=== PATIENT | female | born 1965 | race Caucasian/White ===

== ENCOUNTER 2023-05-13 13:05 | Emergency (ER) | payer BC, SELFPAY ==
[2023-05-13 13:11] VITALS: BP 133/88
[2023-05-13 13:37] LABS: % Basophils 0.7 % (0-2); % Eosinophils 7.5 % (0-6); % Immature Granulocytes 0.2 % (0-0.5); % Monocytes 6.7 % (1.7-9.3); % Neutrophils 40.9 % (42.2-75.2); Absolute Eosinophils 0.4 10^3/uL (0-0.7); Absolute Lymphocytes 2.4 10^3/uL (1.2-3.4); Absolute Monocytes 0.4 10^3/uL (0.1-0.6); Absolute Neutrophils 2.3 10^3/uL (1.4-6.5); Hematocrit 40.1 % (37.0-47.0); Hemoglobin 14.2 g/dL (12.0-16.0); Mean Corp Hgb Conc. 35.4 g/dL (33.0-37.0); Mean Corpuscular Hgb 32.4 pg (27.0-31.0); Mean Corpuscular Volume 91.6 fL (81.0-99.0); Mean Platelet Volume 9.4 fL (7.4-10.4); Nucleated Red Blood Cells % 0 %; Platelet Count 293 10^3/uL (130-400); Red Blood Cell Count 4.38 10^6/uL (4.20-5.40); Red Cell Dist. Width 12.1 % (11.5-14.5); White Blood Cell Count 5.5 10^3/uL (4.8-10.8)
[2023-05-13 13:47] LABS: Urine Albumin Negative (Neg - Trace); Urine Bilirubin Negative (Negative); Urine Character Clear (Clear); Urine Color Yellow; Urine Glucose Negative (Negative); Urine Ketone Negative (Negative); Urine Leukocyte Negative (Negative); Urine Nitrite Negative (Negative); Urine Occult Blood Negative (Negative); Urine Urobilinogen Negative (Neg - 1+); Urine pH 6.5 (5.0-9.0)
[2023-05-13 13:50] LABS: ALT (SGPT) 28 U/L (0-35); AST (SGOT) 37 U/L (14-36); Albumin 4.6 g/dl (3.5-5.0); Alkaline Phosphatase 97 U/L (38-126); Blood Urea Nitrogen 11 mg/dl (7-17); Calcium 9.5 mg/dl (8.4-10.2); Carbon Dioxide 27 mmol/L (22-30); Chloride 107 mmol/L (98-107); Glucose 103 mg/dl (70-99); Potassium 4.5 mmol/L (3.5-5.1); Sodium 140 mmol/L (135-145); Total Bilirubin 0.7 mg/dl (0.2-1.3); eGFR > 60.00
--- NOTE | 2023-05-13 17:27 | ED.GENMED ---
History of Present Illness
General
Chief Complaint: Abdominal Pain
Source: patient
Exam Limitations: none
Time Seen by Provider: 05/13/23 16:56
Nursing documentation reviewed up to this point in time: agreed with
Travel History
Have you had any contact with someone who has COVID-19?: No
Do you have any symptoms of coronavirus? Fever > 100 degrees, chills, cough, shortness of breath, sore throat, loss of taste or smell, muscle aches, or headache?: No
History of Present Illness
History of Present Illness:
57-year-old female with past medical history of anxiety depression migraines previous cholecystectomy presenting to the emergency department today with concerns of abdominal discomfort over the past 2 weeks that is intermittent described as crampy
and sharp with associated nausea no vomiting also passed out yesterday went to [facility] but was never seen by a doctor did have a CT scan and labs the CT scan was normal yesterday. She has had ongoing discomfort today denies any changes in
bowel movements denies vomiting has been able to eat and drink. Denies chest pain shortness of breath.
Past History
Past History
ED Past Medical History: Other (migraine headache)
Social History
Tobacco: Non-smoker
Alcohol: None
Drug: None
Review of Systems
Review of Systems
Allergies reviewed?: Yes
All Other Systems: ROS reviewed and negative except as documented in HPI and ROS
Phy Exam
Physical Exam
Physical Exam:
GENERAL: Alert , in no apparent distress
EYE: pupils equal and reactive
NECK: Supple, no significant adenopathy.
ENT: o/p clr, mmm.
CARDIAC: Regular rate and rhythm .
LUNGS: Clear breath sounds bilaterally, no acute respiratory distress, no wheezes/rales/rhonchi
ABDOMEN: Minimal discomfort to palpation of the epigastric region otherwise soft, without focal tenderness, no r/g, no cvat
NEUROLOGICAL: Alert and oriented, no focal neuro deficits
SKIN: Warm and dry, skin intact.
MUSCULOSKELETAL: No edema, well perfused.
PSYCH: Normal and appropriate interaction.
Course
Orders/Labs/Results
Orders:
Orders
05/13/23 13:18
Electrocardiogram (*1) Urgent
Reason for Study: Abdominal Pain
EKG- Treatment ONCE
05/13/23 13:29
CMP [Comprehensive Metabolic Panel] Urgent
Complete Blood Count/With Diff Urgent
Lipase Urgent
Comment: ADD ON
Urinalysis Reflex To Culture Urgent
Date Specimen was Collected: 05/13/23
Time Specimen was Collected: 13:18
05/13/23 17:25
Mag Hydrox/Al Hydrox/Simeth [Maalox] 30 ml Phenobarb/Hyoscy/Atropine/Scop [] 10 ml PO NOW
05/13/23 17:51
Mag Hydrox/Al Hydrox/Simeth [Maalox] 30 ml .ROUTE .STK-MED ONE
Phenobarb/Hyoscy/Atropine/Scop [] 10 ml .ROUTE .STK-MED ONE
05/13/23 18:20
Add On- LAB Urgent
Tests Added?: lipase
Abnormal Lab Results
05/13/23
13:29
MCH 32.4 H pg
(27.0-31.0)
Neutrophils % 40.9 L %
(42.2-75.2)
Eosinophils % 7.5 H %
(0-6)
Glucose 103 H mg/dl
(70-99)
AST 37 H U/L
(14-36)
05/13/23 13:29
05/13/23 13:29
Vital Signs
Initial and Last Documented VS:
Initial Vital Signs
Temp Pulse Resp BP Pulse Ox
97.7 F 73 18 133/88 98
05/13/23 13:11 05/13/23 13:11 05/13/23 13:11 05/13/23 13:11 05/13/23 13:11
Last Documented Vital Signs
Temp Pulse Resp BP Pulse Ox
97.7 F 73 18 133/88 98
05/13/23 13:11 05/13/23 13:11 05/13/23 13:11 05/13/23 13:11 05/13/23 13:11
MDM/Problems Addressed
MDM/Problems Addressed:
57-year-old female presenting to the emergency department today with concerns of intermittent upper abdominal discomfort without specific palliation or provocation over the past [address] at [facility] yesterday and had a normal CT scan.
Ongoing symptoms today labs unremarkable vital signs normal very minimal discomfort to the epigastric region but otherwise benign abdomen. Labs unremarkable had a CT scan at [place] that she was able to pull the read from that was performed
yesterday evening which was normal. Very low liquid surgical or emergent process stable for discharge. Unlikely be referred pain from the chest EKG normal.
*Critical Care Note
Total Time (30-74mins, 75-104mins- exclusive of procedures): Not Applicable
ED Attending Note
-
Portions of this chart may have been created with voice recognition software.� Occasional wrong word or��sound alike� substitutions may have occurred due to the inherent limitations of voice recognition software.
Discharge Plan
Departure
Patient Disposition: Home (Routine Discharge)
Date of Disposition: 05/13/23
Time of Disposition: 17:45
Patient with high blood pressure during this ER visit?: No
Condition: Good
Covid-19: Not Applicable
Discharge Problem:
Abdominal pain
Instructions: Abdominal Pain
Prescriptions:
New
pantoprazole [Protonix] 40 mg tablet,delayed release (DR/EC)
40 mg PO DAILY 14 Days Qty: 14 0RF
No Action
topiramate 25 MG tablet
50 mg PO BID
frovatriptan [Frova] 2.5 MG tablet
2.5 mg PO PRN PRN (Reason: migraines)
escitalopram oxalate 10 MG tablet
10 mg PO DAILY
norethindrone-e.estradiol-iron [Lo Loestrin Fe] 1 EACH tablet
1 ea PO DAILY
amoxicillin-pot clavulanate 875 MG/125 MG tablet
1 tab PO Q12 Qty: 14 0RF
Referrals:
Patrica Contreras MD [Active] - Follow up in 5-7 days
Activity Restrictions/Additional Instructions:
You came to the emergency department today with concerns of abdominal discomfort. Here you had a reassuring evaluation. Please follow closely with GI and take Protonix daily. Return to the emergency department for any worsening, new or concerning
symptoms.
Interventions
Interventions:
ED- Fall Risk Assessment Last Done: 05/13/23 18:27
*Nursing Disposition Last Done: 05/13/23 18:27
EG-Puhaqa-Ykeheznnou Assessment Last Done: 05/13/23 17:22
Discharge Date and Time
Discharge Date/Time: 05/13/23 18:27
[2023-05-13] MEDS: MAALOX 40 PO (17:53)
[2023-05-13 18:51] LABS: Lipase 119 U/L (23-300)
== END 2023-05-13 18:27 | disposition home or self-care (01) ==
LOC: EMR 13:05
PROVIDERS: Physician Assistant Medical; EMERGENCY PHYSICIAN Emergency Medicine; FAMILY PHYSICIAN Physician Assistant Medical
DX: R10.10 Upper abdominal pain, unspecified (principal); F41.9 Anxiety disorder, unspecified; F32.A Depression, unspecified
CPT/HCPCS: 99284; 80053; 81003; 83690; 85025; 93005

== ENCOUNTER → 2023-09-09 14:03 | Outpatient (REF) | payer BC, SELFPAY | LOC: HWRAD 14:03 | PROVIDERS: ATTENDING PHYSICIAN Physician Assistant Medical | DX: E04.1 Nontoxic single thyroid nodule (principal) | CPT/HCPCS: 76536 ==